=== PATIENT | female | born 1985 | race Caucasian/White ===

== ENCOUNTER 2019-07-03 11:30 | Emergency (ER) | payer OTHER, MEDICAID ==
[~2019-07-03] VITALS: Ht 162.6 cm; Wt 70.3 kg
[2019-07-03] MEDS ORDERED: OMEPRAZOLE 20 M20 M1 PO (11:45)
[2019-07-03] MEDS ORDERED: IBU800 MG PO (11:46)
[2019-07-03] MEDS ORDERED: TRAMADOL 50 MG50 MG PO (11:50)
[2019-07-03 12:31] VITALS: BP 135/64
== END 2019-07-03 12:33 | disposition home or self-care (01) ==
LOC: M.ERS 11:30
DX: K08.89 Other specified disorders of teeth and supporting structures (principal); F17.210 Nicotine dependence, cigarettes, uncomplicated; Z98.51 Tubal ligation status